=== PATIENT | male | born 1960 | race Caucasian/White ===

== ENCOUNTER 2016-10-31 03:11 | Emergency (ER) | payer MEDICAID ==
[~2016-10-31] VITALS: Ht 185.4 cm; Wt 84.0 kg
[~2016-10-31 03:11] MED LIST: CEFD300C37 PO
[2016-10-31 07:42] VITALS: BP 106/67
== END 2016-10-31 07:59 | disposition home or self-care (01) ==
LOC: ED 06:56
DX: S00.512A Abrasion of oral cavity, initial encounter (principal); Z72.9 Problem related to lifestyle, unspecified; F10.220 Alcohol dependence with intoxication, uncomplicated; X58.XXXA Exposure to other specified factors, initial encounter; Y93.89 Activity, other specified; Y99.8 Other external cause status; Y92.89 Other specified places as the place of occurrence of the external cause
CPT/HCPCS: 99283

== ENCOUNTER 2017-09-16 09:59 | Emergency (ER) | payer MEDICAID ==
[~2017-09-16] VITALS: Ht 185.4 cm; Wt 77.5 kg
[2017-09-16 10:05] VITALS: BP 115/80
[2017-09-16] MEDS ORDERED: MORPHINE SULFATE 4 MG/ML, 1ML ONE (10:12)
[2017-09-16] MEDS ORDERED: PLEASE ENTER HEIGHT AND WEIGHT MC SCH (10:30)
[2017-09-16] MEDS ORDERED: SODIUM CHLORIDE 0.9% 1,000ML IVBOLUS ONE (10:30)
[2017-09-16] MEDS ORDERED: morphine SULFATE 10 MG/ML, 1ML IVPush ONE (10:30)
[2017-09-16] MEDS ORDERED: SODIUM CHLORIDE FLUSH 10ML SYR IVF ONE (10:30)
== END 2017-09-16 13:11 | disposition home or self-care (01) ==
LOC: ED 13:05
DX: R07.0 Pain in throat (principal); M54.2 Cervicalgia; R58 Hemorrhage, not elsewhere classified
CPT/HCPCS: 96374; 99284; J2270; J7030

== ENCOUNTER 2017-10-11 17:01 | Inpatient (IN) | payer MEDICAID, OTHER ==
[~2017-10-11] VITALS: Ht 185.4 cm; Wt 85.3 kg
[2017-10-11 17:36] LABS: BASOPHILS # (AUTO) 0.02 x10^3/uL (0-0.1); BASOPHILS % (AUTO) 1 % (0-1); EOSINOPHILS # (AUTO) 0.26 x10^3/uL (0-0.4); EOSINOPHILS % (AUTO) 5 % (1-7); LYMPHOCYTES # (AUTO) 1.77 x10^3/uL (1-3.4); LYMPHOCYTES % (AUTO) 35 % (22-44); MD NO; MEAN CORPUSCULAR HEMOGLOBIN 32.4 pg (27.5-34.5); MEAN CORPUSCULAR HGB CONC 34.3 g/dL (33.2-36.2); MEAN CORPUSCULAR VOLUME 94.4 fL (81-97); MEAN PLATELET VOLUME 9.5 fL (7.4-10.4); MONOCYTES # (AUTO) 0.31 x10^3/uL (0.2-0.8); MONOCYTES % (AUTO) 6 % (2-9); NEUTROPHILS % (AUTO) 53 % (42-75); PLATELET COUNT 107 x10^3/uL (130-400); RED BLOOD COUNT 4.09 x10^6/uL (4.38-5.82)
[2017-10-11 17:42] LABS: ALANINE AMINOTRANSFERASE 50 U/L (12-78); ALBUMIN 3.7 g/dL (3.4-5.0); ANION GAP 11 mmol/L (5-15); CALCIUM 8.5 mg/dL (8.5-10.1); CHLORIDE 108 mmol/L (98-107)
[2017-10-11 17:45] LABS: ALKALINE PHOSPHATASE 64 U/L (45-117); CREATININE 0.85 mg/dL (0.7-1.3); TOTAL PROTEIN 7.5 g/dL (6.4-8.2)
[2017-10-11] MEDS ORDERED: OXYcodone 5 MG/5 ML ORAL.SOL UDC PO ONE (18:00)
[2017-10-11 20:13] LABS: PROTHROMBIN TIME 10.4 Seconds (9.6-11.5)
[2017-10-11] MEDS ORDERED: BISACODYL 10 MG SUPP PR PRN (21:00)
[2017-10-11] MEDS ORDERED: ONDANSETRON 2MG/ML, 2ML IVPush PRN (21:00)
[2017-10-11] MEDS ORDERED: SODIUM CHLORIDE 0.9% 1,000ML IVBOLUS ONE (21:00)
[2017-10-11 21:12] VITALS: BP 101/67
[2017-10-11] MEDS: NICOTINE 21 MG/24 HR PATCH.TD24 TD SCH (21:34)
[2017-10-11] MEDS: morphine SULFATE 10 MG/ML, 1ML IVPush PRN (21:34)
[2017-10-11] MEDS: NS + 20MEQ KCL 1,000 ML IV SCH (22:12)
[2017-10-12] MEDS: morphine SULFATE 10 MG/ML, 1ML IVPush PRN ×6 (00:53→23:04)
[2017-10-12 00:55] VITALS: BP 128/75
[2017-10-12 04:38] LABS: MEAN CORPUSCULAR HEMOGLOBIN 32.3 pg (27.5-34.5); MEAN CORPUSCULAR HGB CONC 33.7 g/dL (33.2-36.2); MEAN CORPUSCULAR VOLUME 95.7 fL (81-97); RED BLOOD COUNT 3.76 x10^6/uL (4.38-5.82); RED CELL DISTRIBUTION WIDTH 13.7 % (9.4-14.8)
[2017-10-12 04:49] LABS: CHLORIDE 110 mmol/L (98-107)
[2017-10-12 04:54] LABS: BASOPHILS # (AUTO) 0.03 x10^3/uL (0-0.1); BASOPHILS % (AUTO) 1 % (0-1); EOSINOPHILS # (AUTO) 0.15 x10^3/uL (0-0.4); EOSINOPHILS % (AUTO) 3 % (1-7); LYMPHOCYTES # (AUTO) 1.82 x10^3/uL (1-3.4); LYMPHOCYTES % (AUTO) 34 % (22-44); MD SCAN; MEAN PLATELET VOLUME 10.1 fL (7.4-10.4); MONOCYTES # (AUTO) 0.43 x10^3/uL (0.2-0.8); MONOCYTES % (AUTO) 8 % (2-9); NEUTROPHILS # (AUTO) 2.96 x10^3/uL (1.8-6.8); NEUTROPHILS % (AUTO) 55 % (42-75); PLATELET COUNT 91 x10^3/uL (130-400)
[2017-10-12 05:05] LABS: ALANINE AMINOTRANSFERASE 45 U/L (12-78); ALBUMIN 3.3 g/dL (3.4-5.0); ALKALINE PHOSPHATASE 57 U/L (45-117); ANION GAP 9 mmol/L (5-15); BILIRUBIN,TOTAL 1.1 mg/dL (0.2-1.0); CREATININE 0.71 mg/dL (0.7-1.3); TOTAL PROTEIN 6.7 g/dL (6.4-8.2)
[2017-10-12 06:56] VITALS: BP 133/75
[2017-10-12] MEDS: NS + 20MEQ KCL 1,000 ML IV SCH ×2 (08:31→22:24)
[2017-10-12 13:30] VITALS: BP 136/81
[2017-10-12] MEDS ORDERED: EPINEPHRINE 1 MG/ML, 1ML ONE (17:57)
[2017-10-12] MEDS ORDERED: LIDOCAINE-MPF 1%, 5ML ONE (17:57)
[2017-10-12] MEDS ORDERED: FENTANYL PF 100 MCG/2ML ONE ×2 (17:57→21:05)
[2017-10-12] MEDS ORDERED: MIDAZOLAM 1 MG/ML, 2ML ONE ×2 (17:57→21:05)
[2017-10-12] MEDS ORDERED: PROPOFOL 10 MG/ML, 20ML ONE ×2 (17:57→21:06)
[2017-10-12] MEDS ORDERED: WATER-INJECTION,STERILE 10 ML IV ONE (17:58)
[2017-10-12] MEDS ORDERED: CEFAZOLIN 1,000 MG ONE ×2 (17:58)
[2017-10-12] MEDS ORDERED: LIDOCAINE 1%-EPI 1:100K, 30ML IM ONE (18:48)
[2017-10-12] MEDS ORDERED: LIDOCAINE 1%, 10ML IM ONE (18:49)
[2017-10-12] MEDS ORDERED: RACEPINEPHRINE INH 2.25%, 0.5ML ONE (19:41)
[2017-10-12] MEDS ORDERED: LORazepam 2 MG/ML, 1ML ONE (19:50)
[2017-10-12] MEDS ORDERED: LORazepam 2 MG/ML, 1ML IVPush ONE (20:00)
[2017-10-12] MEDS ORDERED: SILVER NITRATE STICK TP ONE ×2 (20:14→20:20)
[2017-10-12] MEDS ORDERED: THROMBIN 5,000 UNIT VIAL TP ONE ×2 (21:34→21:35)
[2017-10-12] MEDS ORDERED: LORazepam 2 MG/ML, 1ML IV PRN ×4 (22:00)
[2017-10-12] MEDS: NICOTINE 21 MG/24 HR PATCH.TD24 TD SCH (22:24)
[2017-10-12] MEDS ORDERED: MORPHINE SULFATE 4 MG/ML, 1ML ONE (23:02)
[2017-10-13] MEDS ORDERED: MORPHINE SULFATE 4 MG/ML, 1ML ONE (01:45)
[2017-10-13] MEDS: morphine SULFATE 10 MG/ML, 1ML IVPush PRN ×5 (01:49→23:39)
[2017-10-13 04:10] LABS: MEAN CORPUSCULAR HEMOGLOBIN 32.6 pg (27.5-34.5); MEAN CORPUSCULAR HGB CONC 34.1 g/dL (33.2-36.2); MEAN CORPUSCULAR VOLUME 95.5 fL (81-97); RED BLOOD COUNT 3.66 x10^6/uL (4.38-5.82); RED CELL DISTRIBUTION WIDTH 13.8 % (9.4-14.8)
[2017-10-13 04:22] LABS: ANION GAP 5 mmol/L (5-15); CALCIUM 8.1 mg/dL (8.5-10.1); CHLORIDE 107 mmol/L (98-107); CREATININE 0.57 mg/dL (0.7-1.3)
[2017-10-13 04:33] LABS: MEAN PLATELET VOLUME 9.8 fL (7.4-10.4); PLATELET COUNT 82 x10^3/uL (130-400)
[2017-10-13 04:34] LABS: BASOPHILS # (AUTO) 0.05 x10^3/uL (0-0.1); BASOPHILS % (AUTO) 1 % (0-1); EOSINOPHILS # (AUTO) 0.11 x10^3/uL (0-0.4); EOSINOPHILS % (AUTO) 2 % (1-7); LYMPHOCYTES # (AUTO) 0.84 x10^3/uL (1-3.4); LYMPHOCYTES % (AUTO) 14 % (22-44); MD SCAN; MONOCYTES # (AUTO) 0.49 x10^3/uL (0.2-0.8); MONOCYTES % (AUTO) 8 % (2-9); NEUTROPHILS # (AUTO) 4.69 x10^3/uL (1.8-6.8); NEUTROPHILS % (AUTO) 76 % (42-75)
[2017-10-13] MEDS: LORazepam 2 MG/ML, 1ML IV PRN ×5 (05:17→20:56)
[2017-10-13] MEDS: NS + 20MEQ KCL 1,000 ML IV SCH (07:38)
[2017-10-13] MEDS ORDERED: MAGNESIUM SULFATE PMX 4GM/100M 100 ML IVPB ONE (09:00)
[2017-10-13] MEDS ORDERED: FUROSEMIDE 20 MG/2 ML IV ONE (15:30)
[2017-10-13] MEDS: THIAMINE 200 MG, FOLIC ACID 1 MG, MVI ADULT 10 ML in SODIUM CHLORIDE 0.9% 1,000 ML IV SCH (17:21)
[2017-10-13] MEDS ORDERED: FUROSEMIDE 40 MG/4 ML IV ONE (18:00)
[2017-10-13] MEDS: NICOTINE 21 MG/24 HR PATCH.TD24 TD SCH (20:34)
[2017-10-14] MEDS: morphine SULFATE 10 MG/ML, 1ML IVPush PRN ×3 (02:57→10:15)
[2017-10-14] MEDS: NS + 20MEQ KCL 1,000 ML IV SCH ×3 (03:36→13:51)
[2017-10-14] MEDS: LORazepam 2 MG/ML, 1ML IV PRN ×3 (03:36→21:40)
[2017-10-14 04:16] VITALS: BP 133/88
[2017-10-14 05:01] LABS: MEAN CORPUSCULAR HEMOGLOBIN 32.1 pg (27.5-34.5); MEAN CORPUSCULAR HGB CONC 33.8 g/dL (33.2-36.2); MEAN CORPUSCULAR VOLUME 95.1 fL (81-97); RED BLOOD COUNT 3.76 x10^6/uL (4.38-5.82); RED CELL DISTRIBUTION WIDTH 13.5 % (9.4-14.8)
[2017-10-14 05:14] LABS: CALCIUM 7.9 mg/dL (8.5-10.1); CHLORIDE 105 mmol/L (98-107)
[2017-10-14 05:18] LABS: ALANINE AMINOTRANSFERASE 33 U/L (12-78); ALBUMIN 2.9 g/dL (3.4-5.0); ALKALINE PHOSPHATASE 50 U/L (45-117); ANION GAP 8 mmol/L (5-15); BILIRUBIN,TOTAL 1.9 mg/dL (0.2-1.0); TOTAL PROTEIN 5.9 g/dL (6.4-8.2)
[2017-10-14 05:33] LABS: BASOPHILS # (AUTO) 0.02 x10^3/uL (0-0.1); BASOPHILS % (AUTO) 0 % (0-1); EOSINOPHILS # (AUTO) 0.16 x10^3/uL (0-0.4); EOSINOPHILS % (AUTO) 2 % (1-7); LYMPHOCYTES # (AUTO) 0.99 x10^3/uL (1-3.4); LYMPHOCYTES % (AUTO) 15 % (22-44); MD SCAN; MEAN PLATELET VOLUME 10.7 fL (7.4-10.4); MONOCYTES # (AUTO) 0.63 x10^3/uL (0.2-0.8); MONOCYTES % (AUTO) 10 % (2-9); NEUTROPHILS # (AUTO) 4.71 x10^3/uL (1.8-6.8); NEUTROPHILS % (AUTO) 72 % (42-75); PLATELET COUNT 89 x10^3/uL (130-400)
[2017-10-14] MEDS ORDERED: MAGNESIUM SULFATE PMX 2GM/50ML 50 ML IV ONE (07:30)
[2017-10-14] MEDS ORDERED: BUPIVACAINE/PF-EPI 0.5% 1:200K ONE (14:19)
[2017-10-14] MEDS ORDERED: FENTANYL PF 100 MCG/2ML ONE (16:05)
[2017-10-14] MEDS ORDERED: CEFOTETAN PMX 2GM/50ML 50 ML IVPB ONE (16:15)
[2017-10-14] MEDS ORDERED: MIDAZOLAM 1 MG/ML, 2ML ONE (16:18)
[2017-10-14] MEDS ORDERED: DEXAMETHASONE 4 MG/ML, 1ML ONE (16:28)
[2017-10-14] MEDS ORDERED: MORPHINE SULFATE 4 MG/ML, 1ML IVPush PRN (16:30)
[2017-10-14] MEDS ORDERED: LABETALOL 5MG/ML, 20ML IV PRN (16:30)
[2017-10-14] MEDS ORDERED: MEPERIDINE/PF 25MG/0.5ML IVPush PRN (16:30)
[2017-10-14] MEDS ORDERED: HYDROmorphone 1 MG/ML, 1ML IV PRN (16:30)
[2017-10-14] MEDS ORDERED: PROMETHAZINE 25 MG/ML, 1ML IV PRN (16:30)
[2017-10-14] MEDS ORDERED: ONDANSETRON 2MG/ML, 2ML IV PRN (16:30)
[2017-10-14] MEDS ORDERED: hydrALAzine 20 MG/ML, 1ML IV PRN (16:30)
[2017-10-14] MEDS ORDERED: FENTANYL PF 100 MCG/2ML IV PRN (16:30)
[2017-10-14] MEDS ORDERED: PROPOFOL 10 MG/ML, 20ML ONE (16:38)
[2017-10-14] MEDS ORDERED: ONDANSETRON 2MG/ML, 2ML ONE (16:38)
[2017-10-14] MEDS ORDERED: MORPHINE SULFATE 4 MG/ML, 1ML ONE (17:15)
[2017-10-14] MEDS: THIAMINE 200 MG, FOLIC ACID 1 MG, MVI ADULT 10 ML in SODIUM CHLORIDE 0.9% 1,000 ML IV SCH (18:24)
[2017-10-14] MEDS: NICOTINE 21 MG/24 HR PATCH.TD24 TD SCH (19:53)
[2017-10-14] MEDS: HYDROcodone/APAP 7.5-325MG/15ML UDC PO PRN (20:05)
[2017-10-14] MEDS ORDERED: OMNIPAQUE 350 MG/ML, 200ML BOTTLE ONE (23:10)
[2017-10-15] MEDS: morphine SULFATE 10 MG/ML, 1ML IVPush PRN ×6 (01:14→22:53)
[2017-10-15] MEDS: NS + 20MEQ KCL 1,000 ML IV SCH (02:46)
[2017-10-15 04:36] LABS: ALBUMIN 2.6 g/dL (3.4-5.0); ANION GAP 8 mmol/L (5-15); CALCIUM 7.8 mg/dL (8.5-10.1); CHLORIDE 104 mmol/L (98-107)
[2017-10-15 04:39] LABS: ALANINE AMINOTRANSFERASE 27 U/L (12-78); ALKALINE PHOSPHATASE 53 U/L (45-117); CREATININE 0.65 mg/dL (0.7-1.3); TOTAL PROTEIN 5.9 g/dL (6.4-8.2)
[2017-10-15 04:51] LABS: MEAN CORPUSCULAR HEMOGLOBIN 31.8 pg (27.5-34.5); MEAN CORPUSCULAR HGB CONC 33.7 g/dL (33.2-36.2); MEAN CORPUSCULAR VOLUME 94.6 fL (81-97); MEAN PLATELET VOLUME 10.8 fL (7.4-10.4); PLATELET COUNT 85 x10^3/uL (130-400); RED BLOOD COUNT 3.85 x10^6/uL (4.38-5.82); RED CELL DISTRIBUTION WIDTH 13.5 % (9.4-14.8)
[2017-10-15 05:00] VITALS: BP 103/58
[2017-10-15 05:33] LABS: BASOPHILS % (AUTO) 0 % (0-1); EOSINOPHILS % (AUTO) 0 % (1-7); LYMPHOCYTES # (AUTO) 0.67 x10^3/uL (1-3.4); LYMPHOCYTES % (AUTO) 7 % (22-44); MD SCAN; MONOCYTES # (AUTO) 0.82 x10^3/uL (0.2-0.8); MONOCYTES % (AUTO) 9 % (2-9); NEUTROPHILS # (AUTO) 7.71 x10^3/uL (1.8-6.8); NEUTROPHILS % (AUTO) 84 % (42-75)
[2017-10-15] MEDS ORDERED: DIAZEPAM 5 MG/ML, 2ML IV PRN (08:00)
[2017-10-15] MEDS ORDERED: MAGNESIUM SULFATE PMX 2GM/50ML 50 ML IV ONE (08:00)
[2017-10-15] MEDS: SODIUM CHLORIDE 0.9% 1,000 ML IV SCH (08:10)
[2017-10-15] MEDS: HYDROcodone/APAP 7.5-325MG/15ML UDC PO PRN (08:10)
[2017-10-15 11:42] VITALS: BP 131/88
[2017-10-15] MEDS: ENOXAPARIN 40 MG/0.4 ML SQ SCH (13:28)
[2017-10-15 19:31] VITALS: BP 154/86
[2017-10-15] MEDS: NICOTINE 21 MG/24 HR PATCH.TD24 TD SCH (19:56)
[2017-10-15] MEDS: THIAMINE 200 MG, FOLIC ACID 1 MG, MVI ADULT 10 ML in SODIUM CHLORIDE 0.9% 1,000 ML IV SCH (22:53)
[2017-10-16] MEDS: HYDROcodone/APAP 7.5-325MG/15ML UDC PO PRN ×2 (01:44→17:31)
[2017-10-16 02:05] VITALS: BP 120/80
[2017-10-16] MEDS ORDERED: DIAZEPAM 5 MG/ML, 10ML VIAL IV PRN (02:30)
[2017-10-16] MEDS: morphine SULFATE 10 MG/ML, 1ML IVPush PRN ×5 (04:20→23:33)
[2017-10-16 07:05] VITALS: BP 121/75
[2017-10-16] MEDS: AMPICILLIN/SULBACTAM 3 GM in SODIUM CHLORIDE 0.9% 100 ML IV SCH ×3 (08:34→22:01)
[2017-10-16] MEDS: ENOXAPARIN 40 MG/0.4 ML SQ SCH (12:25)
[2017-10-16] MEDS: SODIUM CHLORIDE 0.9% 1,000 ML IV SCH (13:35)
[2017-10-16 13:45] VITALS: BP 154/95
[2017-10-16 18:59] VITALS: BP 150/96
[2017-10-16] MEDS ORDERED: DIPHENHYDRAMINE 12.5MG/5ML, 10ML UDC GT ONE (21:30)
[2017-10-16] MEDS: NICOTINE 21 MG/24 HR PATCH.TD24 TD SCH (22:01)
[2017-10-16] MEDS: THIAMINE 200 MG, FOLIC ACID 1 MG, MVI ADULT 10 ML in SODIUM CHLORIDE 0.9% 1,000 ML IV SCH (22:39)
[2017-10-17] MEDS: SODIUM CHLORIDE 0.9% 1,000 ML IV SCH ×2 (00:05→12:15)
[2017-10-17 00:58] VITALS: BP 123/78
[2017-10-17] MEDS: AMPICILLIN/SULBACTAM 3 GM in SODIUM CHLORIDE 0.9% 100 ML IV SCH ×4 (03:05→22:31)
[2017-10-17] MEDS: morphine SULFATE 10 MG/ML, 1ML IVPush PRN ×3 (03:09→14:04)
[2017-10-17 07:05] VITALS: BP 138/86
[2017-10-17 13:42] VITALS: BP 138/86
[2017-10-17] MEDS: ENOXAPARIN 40 MG/0.4 ML SQ SCH (14:04)
[2017-10-17 18:47] VITALS: BP 164/91
[2017-10-17] MEDS: HYDROcodone/APAP 7.5-325MG/15ML UDC PO PRN (20:39)
[2017-10-17] MEDS: NICOTINE 21 MG/24 HR PATCH.TD24 TD SCH (22:31)
[2017-10-17] MEDS: TRAZODONE 50MG TABLET PO PRN (22:31)
[2017-10-18] MEDS: ACETAMINOPHEN 325 MG TABLET PO PRN ×3 (00:34→16:24)
[2017-10-18 02:24] VITALS: BP 111/61
[2017-10-18] MEDS: AMPICILLIN/SULBACTAM 3 GM in SODIUM CHLORIDE 0.9% 100 ML IV SCH ×4 (03:36→21:04)
[2017-10-18] MEDS: HYDROcodone/APAP 7.5-325MG/15ML UDC PO PRN ×4 (03:36→22:26)
[2017-10-18 04:55] LABS: ALBUMIN 2.3 g/dL (3.4-5.0); ANION GAP 8 mmol/L (5-15); CALCIUM 7.8 mg/dL (8.5-10.1); CHLORIDE 102 mmol/L (98-107)
[2017-10-18 05:05] LABS: ALANINE AMINOTRANSFERASE 31 U/L (12-78); ALKALINE PHOSPHATASE 61 U/L (45-117); BILIRUBIN,TOTAL 0.9 mg/dL (0.2-1.0); CREATININE 0.51 mg/dL (0.7-1.3); TOTAL PROTEIN 5.5 g/dL (6.4-8.2)
[2017-10-18 05:39] LABS: MD YES
[2017-10-18 05:40] LABS: MEAN CORPUSCULAR HEMOGLOBIN 32.5 pg (27.5-34.5); MEAN CORPUSCULAR HGB CONC 34.5 g/dL (33.2-36.2); MEAN CORPUSCULAR VOLUME 94.4 fL (81-97); MEAN PLATELET VOLUME 9.5 fL (7.4-10.4); PLATELET COUNT 87 x10^3/uL (130-400); RED BLOOD COUNT 2.98 x10^6/uL (4.38-5.82); RED CELL DISTRIBUTION WIDTH 13.3 % (9.4-14.8)
[2017-10-18 05:42] LABS: EOS% (MANUAL) 12 % (1-7); LYMPH#(MANUAL) 0.92 x10^3/uL (1-3.4); LYMPHS% (MANUAL) 28 % (22-44); MONOS#(MANUAL) 0.59 x10^3/uL (0.3-2.7); MONOS% (MANUAL) 18 % (2-9); SEG#(MANUAL) 1.39 x10^3/uL (1.8-6.8); SEGS% (MANUAL) 42 % (42-75)
[2017-10-18 05:43] LABS: <PLATELET ESTIMATE> DECREASED; <PLT MORPHOLOGY> NORMAL PLT MORPH; <RBC MORPHOLOGY> NORMAL
[2017-10-18 08:00] VITALS: BP 105/69
[2017-10-18] MEDS ORDERED: LIDOCAINE-MPF 1%, 2ML ONE (09:32)
[2017-10-18 12:45] VITALS: BP 126/79
[2017-10-18] MEDS: ENOXAPARIN 40 MG/0.4 ML SQ SCH (13:00)
[2017-10-18 21:00] VITALS: BP 130/79
[2017-10-18] MEDS: NICOTINE 21 MG/24 HR PATCH.TD24 TD SCH (21:04)
[2017-10-19 00:25] VITALS: BP 115/68
[2017-10-19] MEDS: AMPICILLIN/SULBACTAM 3 GM in SODIUM CHLORIDE 0.9% 100 ML IV SCH ×4 (04:06→20:53)
[2017-10-19] MEDS: HYDROcodone/APAP 7.5-325MG/15ML UDC PO PRN ×3 (04:31→18:30)
[2017-10-19 04:46] LABS: MEAN CORPUSCULAR HEMOGLOBIN 32.1 pg (27.5-34.5); MEAN CORPUSCULAR HGB CONC 34.3 g/dL (33.2-36.2); MEAN CORPUSCULAR VOLUME 93.8 fL (81-97); MEAN PLATELET VOLUME 10.1 fL (7.4-10.4); PLATELET COUNT 108 x10^3/uL (130-400); RED BLOOD COUNT 3.07 x10^6/uL (4.38-5.82); RED CELL DISTRIBUTION WIDTH 13.4 % (9.4-14.8)
[2017-10-19 05:09] LABS: MD YES
[2017-10-19 05:12] LABS: <PLATELET ESTIMATE> DECREASED; <PLT MORPHOLOGY> NORMAL PLT MORPH; <RBC MORPHOLOGY> NORMAL; EOS#(MANUAL) 0.36 x10^3/uL (0.0-0.4); EOS% (MANUAL) 10 % (1-7); LYMPH#(MANUAL) 1.04 x10^3/uL (1-3.4); LYMPHS% (MANUAL) 29 % (22-44); MONOS#(MANUAL) 0.68 x10^3/uL (0.3-2.7); MONOS% (MANUAL) 19 % (2-9); SEG#(MANUAL) 1.51 x10^3/uL (1.8-6.8); SEGS% (MANUAL) 42 % (42-75)
[2017-10-19 06:47] VITALS: BP 125/77
[2017-10-19 13:10] VITALS: BP 120/69
[2017-10-19] MEDS ORDERED: LIDOCAINE-MPF 1%, 2ML ONE ×2 (13:14→13:44)
[2017-10-19 19:49] VITALS: BP 122/81
[2017-10-19] MEDS: NICOTINE 21 MG/24 HR PATCH.TD24 TD SCH (20:54)
[2017-10-20] MEDS: HYDROcodone/APAP 7.5-325MG/15ML UDC PO PRN ×4 (00:43→20:09)
[2017-10-20 00:48] VITALS: BP 128/83
[2017-10-20] MEDS: AMPICILLIN/SULBACTAM 3 GM in SODIUM CHLORIDE 0.9% 100 ML IV SCH ×4 (03:18→21:56)
[2017-10-20 07:07] VITALS: BP 131/84
[2017-10-20 13:09] VITALS: BP 126/77
[2017-10-20] MEDS: POLYETHYLENE GLYCOL 17 GM PACKET PO PRN (14:01)
[2017-10-20 19:20] VITALS: BP 128/80
[2017-10-20] MEDS: NICOTINE 21 MG/24 HR PATCH.TD24 TD SCH (20:09)
[2017-10-21] MEDS: AMPICILLIN/SULBACTAM 3 GM in SODIUM CHLORIDE 0.9% 100 ML IV SCH ×4 (04:19→22:15)
[2017-10-21 04:20] VITALS: BP 118/72
[2017-10-21 05:02] LABS: BASOPHILS # (AUTO) 0.03 x10^3/uL (0-0.1); BASOPHILS % (AUTO) 1 % (0-1); EOSINOPHILS # (AUTO) 0.48 x10^3/uL (0-0.4); EOSINOPHILS % (AUTO) 12 % (1-7); LYMPHOCYTES % (AUTO) 33 % (22-44); MD NO; MEAN CORPUSCULAR HEMOGLOBIN 31.9 pg (27.5-34.5); MEAN CORPUSCULAR VOLUME 93.9 fL (81-97); MEAN PLATELET VOLUME 10.1 fL (7.4-10.4); MONOCYTES # (AUTO) 0.61 x10^3/uL (0.2-0.8); MONOCYTES % (AUTO) 16 % (2-9); NEUTROPHILS # (AUTO) 1.52 x10^3/uL (1.8-6.8); NEUTROPHILS % (AUTO) 39 % (42-75); PLATELET COUNT 119 x10^3/uL (130-400); RED BLOOD COUNT 3.12 x10^6/uL (4.38-5.82); RED CELL DISTRIBUTION WIDTH 13.5 % (9.4-14.8)
[2017-10-21 05:05] LABS: ALBUMIN 2.5 g/dL (3.4-5.0); ANION GAP 6 mmol/L (5-15); CALCIUM 8.4 mg/dL (8.5-10.1); CHLORIDE 105 mmol/L (98-107)
[2017-10-21 05:10] LABS: ALANINE AMINOTRANSFERASE 37 U/L (12-78); ALKALINE PHOSPHATASE 60 U/L (45-117); BILIRUBIN,TOTAL 0.4 mg/dL (0.2-1.0); CREATININE 0.64 mg/dL (0.7-1.3); TOTAL PROTEIN 6.1 g/dL (6.4-8.2)
[2017-10-21] MEDS: HYDROcodone/APAP 7.5-325MG/15ML UDC PO PRN ×3 (06:28→22:34)
[2017-10-21 08:26] VITALS: BP 116/78
[2017-10-21 14:11] VITALS: BP 125/73
[2017-10-21 19:18] VITALS: BP 115/72
[2017-10-21] MEDS: NICOTINE 21 MG/24 HR PATCH.TD24 TD SCH (20:06)
[2017-10-21] MEDS: TRAZODONE 50MG TABLET PO PRN (22:35)
[2017-10-22] MEDS: AMPICILLIN/SULBACTAM 3 GM in SODIUM CHLORIDE 0.9% 100 ML IV SCH ×4 (04:36→23:35)
[2017-10-22 04:44] VITALS: BP 116/67
[2017-10-22] MEDS: HYDROcodone/APAP 7.5-325MG/15ML UDC PO PRN ×3 (05:02→20:25)
[2017-10-22 05:15] LABS: ALANINE AMINOTRANSFERASE 38 U/L (12-78); ALBUMIN 2.7 g/dL (3.4-5.0); ANION GAP 4 mmol/L (5-15); CALCIUM 8.5 mg/dL (8.5-10.1); CHLORIDE 107 mmol/L (98-107); CREATININE 0.66 mg/dL (0.7-1.3)
[2017-10-22 05:17] LABS: ALKALINE PHOSPHATASE 58 U/L (45-117); BILIRUBIN,TOTAL 0.6 mg/dL (0.2-1.0); TOTAL PROTEIN 6.1 g/dL (6.4-8.2)
[2017-10-22 05:18] LABS: BASOPHILS # (AUTO) 0.05 x10^3/uL (0-0.1); BASOPHILS % (AUTO) 1 % (0-1); EOSINOPHILS # (AUTO) 0.38 x10^3/uL (0-0.4); EOSINOPHILS % (AUTO) 8 % (1-7); LYMPHOCYTES # (AUTO) 1.76 x10^3/uL (1-3.4); LYMPHOCYTES % (AUTO) 34 % (22-44); MD NO; MEAN CORPUSCULAR HEMOGLOBIN 31.9 pg (27.5-34.5); MEAN CORPUSCULAR HGB CONC 33.8 g/dL (33.2-36.2); MEAN CORPUSCULAR VOLUME 94.3 fL (81-97); MEAN PLATELET VOLUME 9.7 fL (7.4-10.4); MONOCYTES % (AUTO) 12 % (2-9); NEUTROPHILS # (AUTO) 2.32 x10^3/uL (1.8-6.8); NEUTROPHILS % (AUTO) 46 % (42-75); PLATELET COUNT 149 x10^3/uL (130-400); RED BLOOD COUNT 3.12 x10^6/uL (4.38-5.82); RED CELL DISTRIBUTION WIDTH 13.9 % (9.4-14.8)
[2017-10-22 08:15] VITALS: BP 102/67
[2017-10-22 12:50] VITALS: BP 148/86
[2017-10-22] MEDS: NICOTINE 21 MG/24 HR PATCH.TD24 TD SCH (18:10)
[2017-10-22 19:27] VITALS: BP 116/72
[2017-10-22] MEDS: TRAZODONE 50MG TABLET PO PRN (23:35)
[2017-10-23 05:44] VITALS: BP 105/67
[2017-10-23] MEDS: AMPICILLIN/SULBACTAM 3 GM in SODIUM CHLORIDE 0.9% 100 ML IV SCH ×3 (05:46→20:13)
[2017-10-23] MEDS: HYDROcodone/APAP 7.5-325MG/15ML UDC PO PRN ×3 (05:47→20:13)
[2017-10-23 09:20] VITALS: BP 104/59
[2017-10-23 13:35] VITALS: BP 100/59
[2017-10-23 19:35] VITALS: BP 123/71
[2017-10-23] MEDS: NICOTINE 21 MG/24 HR PATCH.TD24 TD SCH (20:12)
[2017-10-24] MEDS: POLYETHYLENE GLYCOL 17 GM PACKET PO PRN ×2 (00:39→17:23)
[2017-10-24] MEDS: TRAZODONE 50MG TABLET PO PRN (00:39)
[2017-10-24 01:05] VITALS: BP 108/70
[2017-10-24] MEDS: AMPICILLIN/SULBACTAM 3 GM in SODIUM CHLORIDE 0.9% 100 ML IV SCH ×4 (01:57→19:48)
[2017-10-24] MEDS: HYDROcodone/APAP 7.5-325MG/15ML UDC PO PRN ×3 (05:27→23:18)
[2017-10-24 05:41] LABS: BASOPHILS # (AUTO) 0.06 x10^3/uL (0-0.1); BASOPHILS % (AUTO) 1 % (0-1); EOSINOPHILS # (AUTO) 0.35 x10^3/uL (0-0.4); EOSINOPHILS % (AUTO) 7 % (1-7); LYMPHOCYTES # (AUTO) 1.74 x10^3/uL (1-3.4); LYMPHOCYTES % (AUTO) 33 % (22-44); MD NO; MEAN CORPUSCULAR HEMOGLOBIN 31.5 pg (27.5-34.5); MEAN CORPUSCULAR HGB CONC 33.5 g/dL (33.2-36.2); MEAN CORPUSCULAR VOLUME 93.9 fL (81-97); MEAN PLATELET VOLUME 10.2 fL (7.4-10.4); MONOCYTES # (AUTO) 0.55 x10^3/uL (0.2-0.8); MONOCYTES % (AUTO) 10 % (2-9); NEUTROPHILS # (AUTO) 2.59 x10^3/uL (1.8-6.8); NEUTROPHILS % (AUTO) 49 % (42-75); PLATELET COUNT 155 x10^3/uL (130-400); RED BLOOD COUNT 3.27 x10^6/uL (4.38-5.82); RED CELL DISTRIBUTION WIDTH 13.7 % (9.4-14.8)
[2017-10-24 05:43] LABS: ANION GAP 7 mmol/L (5-15); CALCIUM 8.2 mg/dL (8.5-10.1); CHLORIDE 108 mmol/L (98-107); CREATININE 0.75 mg/dL (0.7-1.3)
[2017-10-24 06:45] VITALS: BP 93/53
[2017-10-24 12:00] VITALS: BP 111/69
[2017-10-24] MEDS: ACETAMINOPHEN 325 MG TABLET PO PRN (15:00)
[2017-10-24 19:37] VITALS: BP 111/71
[2017-10-24] MEDS: NICOTINE 21 MG/24 HR PATCH.TD24 TD SCH (19:49)
[2017-10-24] MEDS: KETOROLAC 30 MG/1 ML IVPush PRN (19:49)
[2017-10-25] MEDS: TRAZODONE 50MG TABLET PO PRN (00:30)
[2017-10-25 01:26] VITALS: BP 106/68
[2017-10-25] MEDS: KETOROLAC 30 MG/1 ML IVPush PRN ×3 (02:46→21:09)
[2017-10-25] MEDS: AMPICILLIN/SULBACTAM 3 GM in SODIUM CHLORIDE 0.9% 100 ML IV SCH ×4 (02:46→21:09)
[2017-10-25] MEDS: HYDROcodone/APAP 7.5-325MG/15ML UDC PO PRN ×3 (04:54→18:03)
[2017-10-25 05:15] LABS: BASOPHILS # (AUTO) 0.06 x10^3/uL (0-0.1); BASOPHILS % (AUTO) 1 % (0-1); EOSINOPHILS # (AUTO) 0.37 x10^3/uL (0-0.4); EOSINOPHILS % (AUTO) 7 % (1-7); LYMPHOCYTES % (AUTO) 31 % (22-44); MD NO; MEAN CORPUSCULAR HEMOGLOBIN 31.2 pg (27.5-34.5); MEAN CORPUSCULAR HGB CONC 33.4 g/dL (33.2-36.2); MEAN CORPUSCULAR VOLUME 93.5 fL (81-97); MEAN PLATELET VOLUME 10.3 fL (7.4-10.4); MONOCYTES # (AUTO) 0.53 x10^3/uL (0.2-0.8); MONOCYTES % (AUTO) 10 % (2-9); NEUTROPHILS # (AUTO) 2.77 x10^3/uL (1.8-6.8); NEUTROPHILS % (AUTO) 51 % (42-75); PLATELET COUNT 157 x10^3/uL (130-400); RED BLOOD COUNT 3.18 x10^6/uL (4.38-5.82); RED CELL DISTRIBUTION WIDTH 14.3 % (9.4-14.8)
[2017-10-25 05:29] LABS: ALANINE AMINOTRANSFERASE 48 U/L (12-78); ALBUMIN 2.7 g/dL (3.4-5.0); ANION GAP 6 mmol/L (5-15); CHLORIDE 107 mmol/L (98-107); CREATININE 0.74 mg/dL (0.7-1.3)
[2017-10-25 05:31] LABS: ALKALINE PHOSPHATASE 60 U/L (45-117); BILIRUBIN,TOTAL 0.4 mg/dL (0.2-1.0); TOTAL PROTEIN 5.9 g/dL (6.4-8.2)
[2017-10-25 06:14] LABS: HCT (SEDRATE) 30.8 % (39.2-51.8)
[2017-10-25 07:03] VITALS: BP 94/57
[2017-10-25] MEDS: POLYETHYLENE GLYCOL 17 GM PACKET PO PRN (07:56)
[2017-10-25 14:07] VITALS: BP 102/66
[2017-10-25 19:05] VITALS: BP 111/69
[2017-10-25] MEDS: NICOTINE 21 MG/24 HR PATCH.TD24 TD SCH (21:09)
[2017-10-26] MEDS: HYDROcodone/APAP 7.5-325MG/15ML UDC PO PRN ×3 (00:25→23:00)
[2017-10-26 01:10] VITALS: BP 110/61
[2017-10-26] MEDS: AMPICILLIN/SULBACTAM 3 GM in SODIUM CHLORIDE 0.9% 100 ML IV SCH ×4 (03:43→21:04)
[2017-10-26] MEDS: KETOROLAC 30 MG/1 ML IVPush PRN ×3 (03:43→21:04)
[2017-10-26 08:45] VITALS: BP 105/70
[2017-10-26] MEDS: ACETAMINOPHEN 325 MG TABLET PO PRN (11:58)
[2017-10-26] MEDS: POLYETHYLENE GLYCOL 17 GM PACKET PO PRN (11:58)
[2017-10-26 15:50] VITALS: BP 114/70
[2017-10-26 19:04] VITALS: BP 131/72
[2017-10-26] MEDS: NICOTINE 21 MG/24 HR PATCH.TD24 TD SCH (21:04)
[2017-10-27 01:11] VITALS: BP 114/73
[2017-10-27] MEDS: KETOROLAC 30 MG/1 ML IVPush PRN ×4 (02:59→23:05)
[2017-10-27] MEDS: AMPICILLIN/SULBACTAM 3 GM in SODIUM CHLORIDE 0.9% 100 ML IV SCH ×4 (02:59→21:19)
[2017-10-27 03:35] LABS: ALBUMIN 2.5 g/dL (3.4-5.0); ANION GAP 4 mmol/L (5-15); CALCIUM 7.9 mg/dL (8.5-10.1); CHLORIDE 105 mmol/L (98-107); CREATININE 0.72 mg/dL (0.7-1.3)
[2017-10-27 03:45] LABS: BASOPHILS # (AUTO) 0.07 x10^3/uL (0-0.1); BASOPHILS % (AUTO) 1 % (0-1); EOSINOPHILS # (AUTO) 0.47 x10^3/uL (0-0.4); EOSINOPHILS % (AUTO) 8 % (1-7); LYMPHOCYTES % (AUTO) 27 % (22-44); MD NO; MEAN CORPUSCULAR HEMOGLOBIN 30.7 pg (27.5-34.5); MEAN CORPUSCULAR HGB CONC 32.8 g/dL (33.2-36.2); MEAN CORPUSCULAR VOLUME 93.7 fL (81-97); MEAN PLATELET VOLUME 10.4 fL (7.4-10.4); MONOCYTES # (AUTO) 0.56 x10^3/uL (0.2-0.8); MONOCYTES % (AUTO) 9 % (2-9); NEUTROPHILS # (AUTO) 3.49 x10^3/uL (1.8-6.8); NEUTROPHILS % (AUTO) 55 % (42-75); PLATELET COUNT 184 x10^3/uL (130-400); RED BLOOD COUNT 2.83 x10^6/uL (4.38-5.82); RED CELL DISTRIBUTION WIDTH 13.7 % (9.4-14.8)
[2017-10-27 06:54] VITALS: BP 110/67
[2017-10-27] MEDS: ACETAMINOPHEN 325 MG TABLET PO PRN ×2 (11:01→23:04)
[2017-10-27 12:23] VITALS: BP 104/66
[2017-10-27] MEDS: HYDROcodone/APAP 7.5-325MG/15ML UDC PO PRN ×2 (13:57→20:06)
[2017-10-27 19:02] VITALS: BP 90/61
[2017-10-27] MEDS: NICOTINE 21 MG/24 HR PATCH.TD24 TD SCH (21:19)
[2017-10-28 01:02] VITALS: BP 92/58
[2017-10-28] MEDS: AMPICILLIN/SULBACTAM 3 GM in SODIUM CHLORIDE 0.9% 100 ML IV SCH ×4 (02:56→21:49)
[2017-10-28] MEDS: HYDROcodone/APAP 7.5-325MG/15ML UDC PO PRN ×3 (05:22→19:33)
[2017-10-28 07:26] VITALS: BP 99/56
[2017-10-28] MEDS: KETOROLAC 30 MG/1 ML IVPush PRN ×2 (09:52→21:49)
[2017-10-28 13:41] VITALS: BP 95/58
[2017-10-28] MEDS: ACETAMINOPHEN 325 MG TABLET PO PRN (15:34)
[2017-10-28 20:00] VITALS: BP_SYST 101; BP_SYST 93; BP_DIAS 56
[2017-10-28] MEDS: NICOTINE 21 MG/24 HR PATCH.TD24 TD SCH (21:50)
[2017-10-29] VITALS (7 sets, daily range): BP systolic 90–101; BP diastolic 52–61
[2017-10-29] MEDS: AMPICILLIN/SULBACTAM 3 GM in SODIUM CHLORIDE 0.9% 100 ML IV SCH ×4 (03:08→21:06)
[2017-10-29] MEDS: HYDROcodone/APAP 7.5-325MG/15ML UDC PO PRN ×4 (03:08→21:06)
[2017-10-29 04:26] LABS: MEAN CORPUSCULAR HEMOGLOBIN 31.1 pg (27.5-34.5); MEAN CORPUSCULAR HGB CONC 33.4 g/dL (33.2-36.2); MEAN PLATELET VOLUME 10.7 fL (7.4-10.4); PLATELET COUNT 198 x10^3/uL (130-400); RED BLOOD COUNT 2.02 x10^6/uL (4.38-5.82); RED CELL DISTRIBUTION WIDTH 14.1 % (9.4-14.8)
[2017-10-29 04:39] LABS: ALBUMIN 2.4 g/dL (3.4-5.0); ANION GAP 7 mmol/L (5-15); CHLORIDE 104 mmol/L (98-107)
[2017-10-29 04:45] LABS: BASOPHILS % (AUTO) 2 % (0-1); CREATININE 0.89 mg/dL (0.7-1.3); EOSINOPHILS % (AUTO) 8 % (1-7); LYMPHOCYTES # (AUTO) 1.96 x10^3/uL (1-3.4); LYMPHOCYTES % (AUTO) 31 % (22-44); MD SCAN; MONOCYTES # (AUTO) 0.55 x10^3/uL (0.2-0.8); MONOCYTES % (AUTO) 9 % (2-9); NEUTROPHILS % (AUTO) 52 % (42-75)
[2017-10-29] MEDS: KETOROLAC 30 MG/1 ML IVPush PRN (10:09)
[2017-10-29] MEDS: NICOTINE 21 MG/24 HR PATCH.TD24 TD SCH (21:06)
[2017-10-30] MEDS: TRAZODONE 50MG TABLET PO PRN (00:02)
[2017-10-30] MEDS: HYDROcodone/APAP 7.5-325MG/15ML UDC PO PRN ×8 (00:02→23:42)
[2017-10-30 01:29] VITALS: BP 100/63
[2017-10-30] MEDS: AMPICILLIN/SULBACTAM 3 GM in SODIUM CHLORIDE 0.9% 100 ML IV SCH ×4 (03:01→20:40)
[2017-10-30 06:18] LABS: ALBUMIN 2.7 g/dL (3.4-5.0); ANION GAP 5 mmol/L (5-15); CALCIUM 8.1 mg/dL (8.5-10.1); CHLORIDE 108 mmol/L (98-107); CREATININE 0.86 mg/dL (0.7-1.3)
[2017-10-30 06:24] LABS: MEAN CORPUSCULAR HGB CONC 33.7 g/dL (33.2-36.2); MEAN CORPUSCULAR VOLUME 92.1 fL (81-97); MEAN PLATELET VOLUME 11.3 fL (7.4-10.4); PLATELET COUNT 189 x10^3/uL (130-400); RED BLOOD COUNT 2.44 x10^6/uL (4.38-5.82); RED CELL DISTRIBUTION WIDTH 14.5 % (9.4-14.8)
[2017-10-30 06:49] LABS: BASOPHILS # (AUTO) 0.07 x10^3/uL (0-0.1); BASOPHILS % (AUTO) 1 % (0-1); EOSINOPHILS # (AUTO) 0.64 x10^3/uL (0-0.4); EOSINOPHILS % (AUTO) 9 % (1-7); LYMPHOCYTES # (AUTO) 2.46 x10^3/uL (1-3.4); LYMPHOCYTES % (AUTO) 34 % (22-44); MD SCAN; MONOCYTES # (AUTO) 0.58 x10^3/uL (0.2-0.8); MONOCYTES % (AUTO) 8 % (2-9); NEUTROPHILS # (AUTO) 3.56 x10^3/uL (1.8-6.8); NEUTROPHILS % (AUTO) 49 % (42-75)
[2017-10-30 06:55] VITALS: BP 94/59
[2017-10-30 14:10] VITALS: BP 100/62
[2017-10-30] MEDS: ACETAMINOPHEN 325 MG TABLET PO PRN (15:41)
[2017-10-30 20:14] VITALS: BP 92/57
[2017-10-30] MEDS: NICOTINE 21 MG/24 HR PATCH.TD24 TD SCH (20:40)
[2017-10-30] MEDS ORDERED: CATHFLO-ALTEPLASE 2 MG/2 ML CATHFLUSH ONE (23:00)
[2017-10-31 01:29] VITALS: BP 106/68
[2017-10-31] MEDS: HYDROcodone/APAP 7.5-325MG/15ML UDC PO PRN ×7 (02:47→22:45)
[2017-10-31] MEDS: AMPICILLIN/SULBACTAM 3 GM in SODIUM CHLORIDE 0.9% 100 ML IV SCH ×4 (02:48→21:27)
[2017-10-31 06:05] LABS: ALANINE AMINOTRANSFERASE 31 U/L (12-78); ALBUMIN 2.5 g/dL (3.4-5.0); ANION GAP 5 mmol/L (5-15); CALCIUM 7.8 mg/dL (8.5-10.1); CHLORIDE 108 mmol/L (98-107); CREATININE 0.78 mg/dL (0.7-1.3)
[2017-10-31 06:08] LABS: ALKALINE PHOSPHATASE 53 U/L (45-117); BILIRUBIN,TOTAL 0.3 mg/dL (0.2-1.0); TOTAL PROTEIN 5.5 g/dL (6.4-8.2)
[2017-10-31 06:47] VITALS: BP 92/54
[2017-10-31 08:46] LABS: MEAN CORPUSCULAR HEMOGLOBIN 30.3 pg (27.5-34.5); MEAN CORPUSCULAR VOLUME 91.8 fL (81-97); MEAN PLATELET VOLUME 9.9 fL (7.4-10.4); PLATELET COUNT 252 x10^3/uL (130-400); RED BLOOD COUNT 2.45 x10^6/uL (4.38-5.82); RED CELL DISTRIBUTION WIDTH 14.4 % (9.4-14.8)
[2017-10-31] MEDS ORDERED: ALBUMIN HUMAN 25% 100 ML IV ONE (10:00)
[2017-10-31] MEDS ORDERED: FUROSEMIDE 40 MG/4 ML IV ONE (10:00)
[2017-10-31 10:11] LABS: BASOPHILS # (AUTO) 0.08 x10^3/uL (0-0.1); BASOPHILS % (AUTO) 1 % (0-1); EOSINOPHILS # (AUTO) 0.74 x10^3/uL (0-0.4); EOSINOPHILS % (AUTO) 12 % (1-7); LYMPHOCYTES # (AUTO) 2.01 x10^3/uL (1-3.4); LYMPHOCYTES % (AUTO) 31 % (22-44); MD SCAN; MONOCYTES # (AUTO) 0.68 x10^3/uL (0.2-0.8); MONOCYTES % (AUTO) 11 % (2-9); NEUTROPHILS # (AUTO) 2.93 x10^3/uL (1.8-6.8); NEUTROPHILS % (AUTO) 46 % (42-75)
[2017-10-31 12:02] VITALS: BP 94/61
[2017-10-31 18:56] VITALS: BP 102/60
[2017-10-31] MEDS: NICOTINE 21 MG/24 HR PATCH.TD24 TD SCH (19:44)
[2017-11-01 01:12] VITALS: BP 102/56
[2017-11-01] MEDS: AMPICILLIN/SULBACTAM 3 GM in SODIUM CHLORIDE 0.9% 100 ML IV SCH ×4 (03:07→22:03)
[2017-11-01] MEDS: HYDROcodone/APAP 7.5-325MG/15ML UDC PO PRN ×4 (05:00→23:15)
[2017-11-01 05:49] LABS: ALBUMIN 2.8 g/dL (3.4-5.0); ANION GAP 7 mmol/L (5-15); CALCIUM 7.9 mg/dL (8.5-10.1); CHLORIDE 105 mmol/L (98-107); MEAN CORPUSCULAR HEMOGLOBIN 30.9 pg (27.5-34.5); MEAN CORPUSCULAR HGB CONC 33.6 g/dL (33.2-36.2); MEAN CORPUSCULAR VOLUME 91.8 fL (81-97); MEAN PLATELET VOLUME 10.4 fL (7.4-10.4); PLATELET COUNT 243 x10^3/uL (130-400); RED BLOOD COUNT 2.37 x10^6/uL (4.38-5.82); RED CELL DISTRIBUTION WIDTH 14.6 % (9.4-14.8)
[2017-11-01 05:53] LABS: ALANINE AMINOTRANSFERASE 33 U/L (12-78); ALKALINE PHOSPHATASE 70 U/L (45-117); BILIRUBIN,TOTAL 0.4 mg/dL (0.2-1.0); C-REACTIVE PROTEIN, QUANT 0.09 mg/dL (0.02-0.49); CREATININE 0.78 mg/dL (0.7-1.3)
[2017-11-01 06:05] LABS: HCT (SEDRATE) 21.9 % (39.2-51.8)
[2017-11-01 06:09] LABS: MD YES
[2017-11-01 06:11] LABS: BAND#(MANUAL) 0.06 x10^3/uL; BANDS%(MANUAL) 1 % (0-7); EOS#(MANUAL) 0.67 x10^3/uL (0.0-0.4); EOS% (MANUAL) 12 % (1-7); LYMPH#(MANUAL) 1.96 x10^3/uL (1-3.4); LYMPHS% (MANUAL) 35 % (22-44); MONOS#(MANUAL) 0.45 x10^3/uL (0.3-2.7); MONOS% (MANUAL) 8 % (2-9); SEG#(MANUAL) 2.46 x10^3/uL (1.8-6.8); SEGS% (MANUAL) 44 % (42-75)
[2017-11-01 06:13] LABS: <PLATELET ESTIMATE> ADEQUATE; POLYCHROMASIA 1+
[2017-11-01 06:14] LABS: <PLT MORPHOLOGY> NORMAL PLT MORPH
[2017-11-01 06:35] VITALS: BP 95/57
[2017-11-01 12:08] VITALS: BP 106/65
[2017-11-01] MEDS ORDERED: ALBUMIN HUMAN 25% 100 ML IV ONE (12:30)
[2017-11-01] MEDS: FUROSEMIDE 20 MG/2 ML IV SCH (15:59)
[2017-11-01 19:20] VITALS: BP 109/66
[2017-11-01] MEDS: NICOTINE 21 MG/24 HR PATCH.TD24 TD SCH (19:31)
[2017-11-02 03:30] VITALS: BP 124/78
[2017-11-02] MEDS: HYDROcodone/APAP 7.5-325MG/15ML UDC PO PRN ×3 (03:52→19:42)
[2017-11-02] MEDS: AMPICILLIN/SULBACTAM 3 GM in SODIUM CHLORIDE 0.9% 100 ML IV SCH ×4 (03:52→21:52)
[2017-11-02] MEDS: NICOTINE 21 MG/24 HR PATCH.TD24 TD SCH (05:34)
[2017-11-02 05:49] LABS: MEAN CORPUSCULAR HEMOGLOBIN 30.6 pg (27.5-34.5); MEAN CORPUSCULAR HGB CONC 33.6 g/dL (33.2-36.2); MEAN PLATELET VOLUME 10.2 fL (7.4-10.4); PLATELET COUNT 236 x10^3/uL (130-400); RED BLOOD COUNT 2.24 x10^6/uL (4.38-5.82); RED CELL DISTRIBUTION WIDTH 13.8 % (9.4-14.8)
[2017-11-02 06:17] LABS: BASOPHILS # (AUTO) 0.03 x10^3/uL (0-0.1); BASOPHILS % (AUTO) 1 % (0-1); EOSINOPHILS % (AUTO) 12 % (1-7); LYMPHOCYTES # (AUTO) 1.29 x10^3/uL (1-3.4); LYMPHOCYTES % (AUTO) 26 % (22-44); MD SCAN; MONOCYTES # (AUTO) 0.52 x10^3/uL (0.2-0.8); MONOCYTES % (AUTO) 10 % (2-9); NEUTROPHILS # (AUTO) 2.61 x10^3/uL (1.8-6.8); NEUTROPHILS % (AUTO) 52 % (42-75)
[2017-11-02 07:59] VITALS: BP 99/45
[2017-11-02] MEDS: FUROSEMIDE 20 MG/2 ML IV SCH (08:59)
[2017-11-02 11:16] VITALS: BP 98/61
[2017-11-02 11:35] VITALS: BP 89/59
[2017-11-02 13:00] VITALS: BP 91/40
[2017-11-02 18:41] VITALS: BP 102/61
[2017-11-03 03:56] VITALS: BP 111/55
[2017-11-03] MEDS: AMPICILLIN/SULBACTAM 3 GM in SODIUM CHLORIDE 0.9% 100 ML IV SCH ×4 (04:00→23:08)
[2017-11-03 04:51] LABS: BASOPHILS # (AUTO) 0.05 x10^3/uL (0-0.1); BASOPHILS % (AUTO) 1 % (0-1); EOSINOPHILS # (AUTO) 0.69 x10^3/uL (0-0.4); EOSINOPHILS % (AUTO) 12 % (1-7); LYMPHOCYTES # (AUTO) 1.65 x10^3/uL (1-3.4); LYMPHOCYTES % (AUTO) 29 % (22-44); MD NO; MEAN CORPUSCULAR HEMOGLOBIN 29.4 pg (27.5-34.5); MEAN CORPUSCULAR HGB CONC 32.7 g/dL (33.2-36.2); MEAN CORPUSCULAR VOLUME 89.9 fL (81-97); MEAN PLATELET VOLUME 9.6 fL (7.4-10.4); MONOCYTES # (AUTO) 0.63 x10^3/uL (0.2-0.8); MONOCYTES % (AUTO) 11 % (2-9); NEUTROPHILS # (AUTO) 2.69 x10^3/uL (1.8-6.8); NEUTROPHILS % (AUTO) 47 % (42-75); PLATELET COUNT 270 x10^3/uL (130-400); RED BLOOD COUNT 2.71 x10^6/uL (4.38-5.82); RED CELL DISTRIBUTION WIDTH 14.1 % (9.4-14.8)
[2017-11-03 04:57] LABS: ALBUMIN 2.8 g/dL (3.4-5.0); ANION GAP 6 mmol/L (5-15); CALCIUM 8.2 mg/dL (8.5-10.1); CHLORIDE 109 mmol/L (98-107); CREATININE 0.73 mg/dL (0.7-1.3)
[2017-11-03] MEDS: NICOTINE 21 MG/24 HR PATCH.TD24 TD SCH (05:03)
[2017-11-03] MEDS: HYDROcodone/APAP 7.5-325MG/15ML UDC PO PRN ×6 (05:03→23:41)
[2017-11-03 07:57] VITALS: BP 130/63
[2017-11-03] MEDS ORDERED: ALBUMIN HUMAN 25% 100 ML IV ONE (09:00)
[2017-11-03] MEDS ORDERED: FUROSEMIDE 20 MG/2 ML IV ONE (09:00)
[2017-11-03 12:19] VITALS: BP 110/68
[2017-11-03] MEDS: FUROSEMIDE 20 MG/2 ML IV SCH (14:17)
[2017-11-03 20:22] VITALS: BP 97/67
[2017-11-03] MEDS: TRAZODONE 50MG TABLET PO PRN (23:41)
[2017-11-04 00:06] VITALS: BP 93/45
[2017-11-04] MEDS: HYDROcodone/APAP 7.5-325MG/15ML UDC PO PRN ×7 (02:33→23:38)
[2017-11-04] MEDS: NICOTINE 21 MG/24 HR PATCH.TD24 TD SCH (05:53)
[2017-11-04] MEDS: AMPICILLIN/SULBACTAM 3 GM in SODIUM CHLORIDE 0.9% 100 ML IV SCH ×4 (05:54→23:39)
[2017-11-04 07:28] VITALS: BP 93/55
[2017-11-04] MEDS: FUROSEMIDE 20 MG/2 ML IV SCH (08:58)
[2017-11-04 12:59] VITALS: BP 102/52
[2017-11-04 19:18] VITALS: BP 92/54
[2017-11-05 00:42] VITALS: BP 102/61
[2017-11-05] MEDS: HYDROcodone/APAP 7.5-325MG/15ML UDC PO PRN ×6 (04:45→21:09)
[2017-11-05] MEDS: NICOTINE 21 MG/24 HR PATCH.TD24 TD SCH (04:45)
[2017-11-05] MEDS: AMPICILLIN/SULBACTAM 3 GM in SODIUM CHLORIDE 0.9% 100 ML IV SCH ×4 (04:45→22:59)
[2017-11-05 04:57] LABS: BASOPHILS # (AUTO) 0.07 x10^3/uL (0-0.1); BASOPHILS % (AUTO) 1 % (0-1); EOSINOPHILS # (AUTO) 1.04 x10^3/uL (0-0.4); EOSINOPHILS % (AUTO) 16 % (1-7); LYMPHOCYTES # (AUTO) 2.16 x10^3/uL (1-3.4); LYMPHOCYTES % (AUTO) 33 % (22-44); MD NO; MEAN CORPUSCULAR HEMOGLOBIN 30.3 pg (27.5-34.5); MEAN CORPUSCULAR VOLUME 91.7 fL (81-97); MEAN PLATELET VOLUME 9.6 fL (7.4-10.4); MONOCYTES # (AUTO) 0.65 x10^3/uL (0.2-0.8); MONOCYTES % (AUTO) 10 % (2-9); NEUTROPHILS # (AUTO) 2.74 x10^3/uL (1.8-6.8); NEUTROPHILS % (AUTO) 41 % (42-75); PLATELET COUNT 298 x10^3/uL (130-400); RED BLOOD COUNT 2.91 x10^6/uL (4.38-5.82); RED CELL DISTRIBUTION WIDTH 14.4 % (9.4-14.8)
[2017-11-05 05:06] LABS: ALBUMIN 3.2 g/dL (3.4-5.0); ANION GAP 4 mmol/L (5-15); CALCIUM 8.8 mg/dL (8.5-10.1); CHLORIDE 106 mmol/L (98-107); CREATININE 0.85 mg/dL (0.7-1.3)
[2017-11-05 06:35] VITALS: BP 99/58
[2017-11-05] MEDS: FUROSEMIDE 20 MG/2 ML IV SCH (07:51)
[2017-11-05 14:03] VITALS: BP 109/68
[2017-11-05 18:59] VITALS: BP 106/59
[2017-11-06 00:48] VITALS: BP 106/61
[2017-11-06 01:17] LABS: MICROSCOPIC NOT IND
[2017-11-06 04:23] LABS: ALBUMIN 3.1 g/dL (3.4-5.0); ANION GAP 4 mmol/L (5-15); CALCIUM 8.6 mg/dL (8.5-10.1); CHLORIDE 106 mmol/L (98-107); CREATININE 0.83 mg/dL (0.7-1.3)
[2017-11-06 05:03] LABS: MEAN CORPUSCULAR HGB CONC 32.7 g/dL (33.2-36.2); MEAN CORPUSCULAR VOLUME 88.8 fL (81-97); MEAN PLATELET VOLUME 9.7 fL (7.4-10.4); PLATELET COUNT 274 x10^3/uL (130-400); RED BLOOD COUNT 2.81 x10^6/uL (4.38-5.82); RED CELL DISTRIBUTION WIDTH 14.2 % (9.4-14.8)
[2017-11-06] MEDS: NICOTINE 21 MG/24 HR PATCH.TD24 TD SCH (05:40)
[2017-11-06] MEDS: AMPICILLIN/SULBACTAM 3 GM in SODIUM CHLORIDE 0.9% 100 ML IV SCH ×4 (05:40→23:05)
[2017-11-06 05:56] LABS: BASOPHILS # (AUTO) 0.07 x10^3/uL (0-0.1); BASOPHILS % (AUTO) 1 % (0-1); EOSINOPHILS # (AUTO) 0.95 x10^3/uL (0-0.4); EOSINOPHILS % (AUTO) 16 % (1-7); LYMPHOCYTES # (AUTO) 1.66 x10^3/uL (1-3.4); LYMPHOCYTES % (AUTO) 28 % (22-44); MD SCAN; MONOCYTES # (AUTO) 0.71 x10^3/uL (0.2-0.8); MONOCYTES % (AUTO) 12 % (2-9); NEUTROPHILS # (AUTO) 2.54 x10^3/uL (1.8-6.8); NEUTROPHILS % (AUTO) 43 % (42-75)
[2017-11-06 08:02] VITALS: BP 115/73
[2017-11-06] MEDS: HYDROcodone/APAP 7.5-325MG/15ML UDC PO PRN ×4 (08:44→21:03)
[2017-11-06] MEDS ORDERED: FUROSEMIDE 20 MG/2 ML IV SCH (09:00)
[2017-11-06 14:40] VITALS: BP 122/75
[2017-11-06 20:36] VITALS: BP 115/75
[2017-11-07 01:11] VITALS: BP 130/68
[2017-11-07] MEDS: HYDROcodone/APAP 7.5-325MG/15ML UDC PO PRN ×5 (03:38→21:46)
[2017-11-07] MEDS: AMPICILLIN/SULBACTAM 3 GM in SODIUM CHLORIDE 0.9% 100 ML IV SCH ×4 (05:11→23:18)
[2017-11-07] MEDS: NICOTINE 21 MG/24 HR PATCH.TD24 TD SCH (05:11)
[2017-11-07 06:30] VITALS: BP 121/78
[2017-11-07] MEDS ORDERED: ALBUMIN HUMAN 25% 100 ML IV ONE (07:00)
[2017-11-07] MEDS ORDERED: FUROSEMIDE 20 MG/2 ML IV ONE (07:00)
[2017-11-07 12:11] VITALS: BP 121/71
[2017-11-07 19:14] VITALS: BP 116/66
[2017-11-08 01:12] VITALS: BP 125/76
[2017-11-08 04:33] LABS: BASOPHILS # (AUTO) 0.02 x10^3/uL (0-0.1); BASOPHILS % (AUTO) 0 % (0-1); EOSINOPHILS # (AUTO) 1.12 x10^3/uL (0-0.4); EOSINOPHILS % (AUTO) 18 % (1-7); LYMPHOCYTES # (AUTO) 1.42 x10^3/uL (1-3.4); LYMPHOCYTES % (AUTO) 23 % (22-44); MD NO; MEAN CORPUSCULAR HEMOGLOBIN 29.1 pg (27.5-34.5); MEAN CORPUSCULAR HGB CONC 32.8 g/dL (33.2-36.2); MEAN CORPUSCULAR VOLUME 88.7 fL (81-97); MEAN PLATELET VOLUME 9.1 fL (7.4-10.4); MONOCYTES # (AUTO) 0.63 x10^3/uL (0.2-0.8); MONOCYTES % (AUTO) 10 % (2-9); NEUTROPHILS # (AUTO) 3.13 x10^3/uL (1.8-6.8); NEUTROPHILS % (AUTO) 49 % (42-75); PLATELET COUNT 242 x10^3/uL (130-400); RED BLOOD COUNT 2.78 x10^6/uL (4.38-5.82); RED CELL DISTRIBUTION WIDTH 14.4 % (9.4-14.8)
[2017-11-08 04:41] LABS: ALBUMIN 3.1 g/dL (3.4-5.0); ANION GAP 4 mmol/L (5-15); CALCIUM 8.5 mg/dL (8.5-10.1); CHLORIDE 105 mmol/L (98-107); CREATININE 0.81 mg/dL (0.7-1.3)
[2017-11-08] MEDS: AMPICILLIN/SULBACTAM 3 GM in SODIUM CHLORIDE 0.9% 100 ML IV SCH ×4 (05:23→23:24)
[2017-11-08] MEDS: NICOTINE 21 MG/24 HR PATCH.TD24 TD SCH (05:23)
[2017-11-08 06:52] VITALS: BP 117/68
[2017-11-08] MEDS: FUROSEMIDE 40 MG TABLET PO SCH (07:28)
[2017-11-08] MEDS: HYDROcodone/APAP 7.5-325MG/15ML UDC PO PRN ×2 (11:21→14:27)
[2017-11-08 12:48] VITALS: BP 116/60
[2017-11-08] MEDS: morphine SULFATE ORAL.CONC 20 MG/ML PO PRN (17:37)
[2017-11-08 19:06] VITALS: BP 110/62
[2017-11-09] MEDS: morphine SULFATE ORAL.CONC 20 MG/ML PO PRN ×5 (00:15→22:26)
[2017-11-09 04:27] VITALS: BP 121/72
[2017-11-09] MEDS: AMPICILLIN/SULBACTAM 3 GM in SODIUM CHLORIDE 0.9% 100 ML IV SCH ×4 (04:30→22:26)
[2017-11-09] MEDS: NICOTINE 21 MG/24 HR PATCH.TD24 TD SCH (04:30)
[2017-11-09 04:46] LABS: BASOPHILS # (AUTO) 0.06 x10^3/uL (0-0.1); BASOPHILS % (AUTO) 1 % (0-1); EOSINOPHILS # (AUTO) 0.89 x10^3/uL (0-0.4); EOSINOPHILS % (AUTO) 15 % (1-7); LYMPHOCYTES % (AUTO) 25 % (22-44); MD NO; MEAN CORPUSCULAR HEMOGLOBIN 28.8 pg (27.5-34.5); MEAN CORPUSCULAR HGB CONC 32.6 g/dL (33.2-36.2); MEAN CORPUSCULAR VOLUME 88.3 fL (81-97); MONOCYTES # (AUTO) 0.74 x10^3/uL (0.2-0.8); MONOCYTES % (AUTO) 12 % (2-9); NEUTROPHILS # (AUTO) 2.81 x10^3/uL (1.8-6.8); NEUTROPHILS % (AUTO) 47 % (42-75); PLATELET COUNT 213 x10^3/uL (130-400); RED BLOOD COUNT 2.74 x10^6/uL (4.38-5.82)
[2017-11-09 04:54] LABS: ANION GAP 7 mmol/L (5-15); CALCIUM 8.1 mg/dL (8.5-10.1); CHLORIDE 108 mmol/L (98-107)
[2017-11-09 04:56] LABS: CREATININE 0.83 mg/dL (0.7-1.3)
[2017-11-09 07:28] VITALS: BP 107/54
[2017-11-09] MEDS: FUROSEMIDE 40 MG TABLET PO SCH (07:45)
[2017-11-09 13:07] VITALS: BP 110/72
[2017-11-09 19:03] VITALS: BP 96/60
[2017-11-10 01:01] VITALS: BP 125/77
[2017-11-10] MEDS: AMPICILLIN/SULBACTAM 3 GM in SODIUM CHLORIDE 0.9% 100 ML IV SCH ×4 (05:57→23:09)
[2017-11-10] MEDS: NICOTINE 21 MG/24 HR PATCH.TD24 TD SCH (06:04)
[2017-11-10 06:34] VITALS: BP 125/73
[2017-11-10 08:17] LABS: BASOPHILS % (AUTO) 0 % (0-1); EOSINOPHILS # (AUTO) 0.89 x10^3/uL (0-0.4); EOSINOPHILS % (AUTO) 15 % (1-7); LYMPHOCYTES # (AUTO) 1.65 x10^3/uL (1-3.4); LYMPHOCYTES % (AUTO) 28 % (22-44); MD NO; MEAN CORPUSCULAR HEMOGLOBIN 28.3 pg (27.5-34.5); MEAN CORPUSCULAR HGB CONC 32.7 g/dL (33.2-36.2); MEAN CORPUSCULAR VOLUME 86.8 fL (81-97); MEAN PLATELET VOLUME 8.8 fL (7.4-10.4); MONOCYTES # (AUTO) 0.33 x10^3/uL (0.2-0.8); MONOCYTES % (AUTO) 6 % (2-9); NEUTROPHILS # (AUTO) 3.11 x10^3/uL (1.8-6.8); NEUTROPHILS % (AUTO) 52 % (42-75); PLATELET COUNT 253 x10^3/uL (130-400); RED BLOOD COUNT 2.98 x10^6/uL (4.38-5.82); RED CELL DISTRIBUTION WIDTH 15.1 % (9.4-14.8)
[2017-11-10 08:26] LABS: ANION GAP 7 mmol/L (5-15); CALCIUM 8.3 mg/dL (8.5-10.1); CHLORIDE 107 mmol/L (98-107); CREATININE 0.88 mg/dL (0.7-1.3)
[2017-11-10] MEDS: morphine SULFATE ORAL.CONC 20 MG/ML PO PRN ×4 (08:26→23:10)
[2017-11-10] MEDS: FUROSEMIDE 40 MG TABLET PO SCH (08:26)
[2017-11-10 12:45] VITALS: BP 103/64
[2017-11-10] MEDS: ACETAMINOPHEN 325 MG TABLET PO PRN (17:02)
[2017-11-10 18:42] VITALS: BP 104/64
[2017-11-10 23:52] VITALS: BP 104/68
[2017-11-11] MEDS: NICOTINE 21 MG/24 HR PATCH.TD24 TD SCH (05:08)
[2017-11-11] MEDS: AMPICILLIN/SULBACTAM 3 GM in SODIUM CHLORIDE 0.9% 100 ML IV SCH ×4 (05:09→23:10)
[2017-11-11] MEDS: morphine SULFATE ORAL.CONC 20 MG/ML PO PRN ×6 (05:12→23:50)
[2017-11-11 08:11] VITALS: BP 111/65
[2017-11-11] MEDS: FUROSEMIDE 40 MG TABLET PO SCH (09:27)
[2017-11-11 14:00] VITALS: BP 107/63
[2017-11-11 18:33] VITALS: BP 110/68
[2017-11-12 01:16] VITALS: BP 110/71
[2017-11-12] MEDS: morphine SULFATE ORAL.CONC 20 MG/ML PO PRN ×5 (05:13→19:30)
[2017-11-12] MEDS: AMPICILLIN/SULBACTAM 3 GM in SODIUM CHLORIDE 0.9% 100 ML IV SCH ×3 (05:13→19:29)
[2017-11-12] MEDS: NICOTINE 21 MG/24 HR PATCH.TD24 TD SCH (05:13)
[2017-11-12 05:47] LABS: CHLORIDE 107 mmol/L (98-107); MEAN CORPUSCULAR HEMOGLOBIN 28.9 pg (27.5-34.5); MEAN CORPUSCULAR HGB CONC 33.8 g/dL (33.2-36.2); MEAN CORPUSCULAR VOLUME 85.5 fL (81-97); MEAN PLATELET VOLUME 9.1 fL (7.4-10.4); PLATELET COUNT 175 x10^3/uL (130-400); RED BLOOD COUNT 2.68 x10^6/uL (4.38-5.82); RED CELL DISTRIBUTION WIDTH 15.5 % (9.4-14.8)
[2017-11-12 05:53] LABS: ANION GAP 6 mmol/L (5-15); CALCIUM 8.3 mg/dL (8.5-10.1); CREATININE 0.76 mg/dL (0.7-1.3)
[2017-11-12 06:21] LABS: BASOPHILS # (AUTO) 0.02 x10^3/uL (0-0.1); BASOPHILS % (AUTO) 0 % (0-1); EOSINOPHILS # (AUTO) 0.79 x10^3/uL (0-0.4); EOSINOPHILS % (AUTO) 14 % (1-7); LYMPHOCYTES # (AUTO) 1.85 x10^3/uL (1-3.4); LYMPHOCYTES % (AUTO) 32 % (22-44); MD SCAN; MONOCYTES # (AUTO) 0.72 x10^3/uL (0.2-0.8); MONOCYTES % (AUTO) 12 % (2-9); NEUTROPHILS # (AUTO) 2.42 x10^3/uL (1.8-6.8); NEUTROPHILS % (AUTO) 42 % (42-75)
[2017-11-12] MEDS: FUROSEMIDE 40 MG TABLET PO SCH (08:59)
[2017-11-12 09:21] VITALS: BP 113/73
[2017-11-12 13:36] VITALS: BP 122/81
[2017-11-12 19:31] VITALS: BP 105/63
[2017-11-12] MEDS ORDERED: DIPHENHYDRAMINE 12.5MG/5ML, 10ML UDC PO PRN (21:00)
[2017-11-13] MEDS: AMPICILLIN/SULBACTAM 3 GM in SODIUM CHLORIDE 0.9% 100 ML IV SCH ×4 (01:14→19:41)
[2017-11-13] MEDS: morphine SULFATE ORAL.CONC 20 MG/ML PO PRN ×5 (01:14→19:41)
[2017-11-13] MEDS: maalox/diphenh/lido/sucralfate 5 ML PO PRN (01:17)
[2017-11-13 01:27] VITALS: BP 109/69
[2017-11-13] MEDS: NICOTINE 21 MG/24 HR PATCH.TD24 TD SCH (04:54)
[2017-11-13 07:58] VITALS: BP 117/64
[2017-11-13] MEDS: FUROSEMIDE 40 MG TABLET PO SCH (08:52)
[2017-11-13] MEDS: ENOXAPARIN 40 MG/0.4 ML SQ SCH (12:30)
[2017-11-13 13:23] VITALS: BP 103/62
[2017-11-13 19:36] VITALS: BP 101/61
[2017-11-14] MEDS: morphine SULFATE ORAL.CONC 20 MG/ML PO PRN ×4 (00:31→14:17)
[2017-11-14] MEDS: AMPICILLIN/SULBACTAM 3 GM in SODIUM CHLORIDE 0.9% 100 ML IV SCH ×4 (01:52→19:44)
[2017-11-14 01:55] VITALS: BP 110/74
[2017-11-14] MEDS: maalox/diphenh/lido/sucralfate 5 ML PO PRN (03:33)
[2017-11-14] MEDS: NICOTINE 21 MG/24 HR PATCH.TD24 TD SCH (04:55)
[2017-11-14 07:05] VITALS: BP 103/68
[2017-11-14] MEDS: FUROSEMIDE 40 MG TABLET PO SCH (09:08)
[2017-11-14] MEDS: ENOXAPARIN 40 MG/0.4 ML SQ SCH (11:37)
[2017-11-14 12:52] VITALS: BP 99/65
[2017-11-14] MEDS ORDERED: DIPHENHYDRAMINE 25 MG CAPSULE PO PRN (17:30)
[2017-11-14] MEDS ORDERED: DIPHENHYDRAMINE 12.5MG/5ML, 10ML UDC PO PRN (18:00)
[2017-11-14 20:15] VITALS: BP 109/66
[2017-11-15 02:10] VITALS: BP 108/60
[2017-11-15] MEDS: morphine SULFATE ORAL.CONC 20 MG/ML PO PRN ×3 (02:12→13:27)
[2017-11-15] MEDS: maalox/diphenh/lido/sucralfate 5 ML PO PRN ×2 (02:16→13:26)
[2017-11-15 05:31] LABS: CREATININE 0.88 mg/dL (0.7-1.3)
[2017-11-15] MEDS: AMOXICILLIN 500 MG CAPSULE PO SCH ×2 (05:48→13:27)
[2017-11-15 06:32] VITALS: BP 113/68
[2017-11-15] MEDS: FUROSEMIDE 40 MG TABLET PO SCH (08:20)
[2017-11-15] MEDS: NICOTINE 21 MG/24 HR PATCH.TD24 TD SCH (08:20)
[2017-11-15] MEDS ORDERED: AMOX1TAB64 PO (11:54)
[2017-11-15] MEDS ORDERED: FURO40TA6 PO (11:54)
[2017-11-15 12:06] VITALS: BP 117/71
[2017-11-15] MEDS: ENOXAPARIN 40 MG/0.4 ML SQ SCH (12:30)
[2017-11-15] MEDS ORDERED: AMOXICILLIN 250 MG/5 ML, ORAL SUSP PO SCH (14:18)
== END 2017-11-15 15:20 | disposition hospice, home (50) | DRG 3 ==
LOC: OR 18:29 → 3NW 20:16 → CCU 10-12 19:25 → 3NW 10-15 11:21
PROVIDERS: ADMIT Hospitalist; ATTEND Internal Medicine
PROC: 0B110F4 Bypass Trachea to Cutaneous with Tracheostomy Device, Open Approach (ICD-10-PCS; 2017-10-12)
PROC: 0W3Q3ZZ Control Bleeding in Respiratory Tract, Percutaneous Approach (ICD-10-PCS; 2017-10-12)
PROC: 0CBM8ZX Excision of Pharynx, Via Natural or Artificial Opening Endoscopic, Diagnostic (ICD-10-PCS; 2017-10-12)
PROC: 0DH63UZ Insertion of Feeding Device into Stomach, Percutaneous Approach (ICD-10-PCS; 2017-10-14)
PROC: 02HV33Z Insertion of Infusion Device into Superior Vena Cava, Percutaneous Approach (ICD-10-PCS; 2017-10-18)
PROC: B548ZZA Ultrasonography of Superior Vena Cava, Guidance (ICD-10-PCS; 2017-10-18)
PROC: 07D23ZX Extraction of Left Neck Lymphatic, Percutaneous Approach, Diagnostic (ICD-10-PCS; 2017-10-19)
PROC: 30233N1 Transfusion of Nonautologous Red Blood Cells into Peripheral Vein, Percutaneous Approach (ICD-10-PCS; principal; 2017-10-29)
DX: J96.00 Acute respiratory failure, unspecified whether with hypoxia or hypercapnia (principal); C77.0 Secondary and unspecified malignant neoplasm of lymph nodes of head, face and neck; C78.00 Secondary malignant neoplasm of unspecified lung; E46 Unspecified protein-calorie malnutrition; F10.239 Alcohol dependence with withdrawal, unspecified; A42.89 Other forms of actinomycosis; C01 Malignant neoplasm of base of tongue; B19.20 Unspecified viral hepatitis C without hepatic coma; C10.9 Malignant neoplasm of oropharynx, unspecified; D64.9 Anemia, unspecified; D69.59 Other secondary thrombocytopenia; F17.210 Nicotine dependence, cigarettes, uncomplicated; I50.9 Heart failure, unspecified; R13.10 Dysphagia, unspecified; Z51.5 Encounter for palliative care; Z66 Do not resuscitate; Z82.3 Family history of stroke; Z82.49 Family history of ischemic heart disease and other diseases of the circulatory system; Z90.49 Acquired absence of other specified parts of digestive tract; Z91.19 Patient's noncompliance with other medical treatment and regimen; J02.9 Acute pharyngitis, unspecified; R91.1 Solitary pulmonary nodule; F10.229 Alcohol dependence with intoxication, unspecified; Y92.89 Other specified places as the place of occurrence of the external cause
CPT/HCPCS: 36415; 36569; 38505; 70470; 70491; 71045; 71046; 71260; 74177; 74230; 76705; 76937; 76942; 77001; 80048; 80053; 80307; 81003; 82040; 82565; 83735; 83880; 84100; 85025; 85610; 85651; 85730; 86140; 86480; 86803; 86850; 86900; 86923; 87081; 87521; 87806; 88305; 88312; 88341; 88342; 93970; 99285; B4087; G0378; J0171; J0295; J0690; J1100; J1650; J1885; J1940; J2250; J2405; J2704; J2997; J3010; J3360; J3411; J3480; J3490; P9047; Q9967; C1751; G0461; G0475; J2060; J2270; J3475; J7030; P9016; S0074